=== PATIENT | female | born 2000 | race Caucasian/White ===

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

== ENCOUNTER 2020-01-18 10:20 | Emergency (ER) | payer SELFPAY ==
[~2020-01-18] VITALS: Ht 157.5 cm; Wt 71.7 kg
[2020-01-18 10:56] LABS: CLARITY,URINE SL CLOUDY (CLEAR); COLOR,URINE YELLOW (YELLOW); LEUKOCYTE ESTERASE ,URINE NEGATIVE (NEGATIVE); NITRITE,URINE NEGATIVE (NEGATIVE)
[2020-01-18 10:57] LABS: BILIRUBIN,URINE NEGATIVE (NEGATIVE); KETONES,URINE NEGATIVE (NEGATIVE); PROTEIN,URINE DIPSTICK NEGATIVE (NEGATIVE); URINE UROBILINOGEN 1 mg/dL (0.2 - 1)
[2020-01-18 10:58] LABS: PREGNANCY TEST, URINE NEGATIVE (NEGATIVE)
[2020-01-18 11:12] LABS: BACTERIA,URINE RARE /HPF; EPITHELIAL CELLS,URINE FEW /LPF; RBC,URINE 0-5 /HPF (0-5); WBC,URINE (MAN) 0-5 /HPF (0-5)
== END 2020-01-18 11:24 | disposition home or self-care (01) ==
LOC: ER 10:20
DX: R53.83 Other fatigue (principal); R53.1 Weakness
CPT/HCPCS: 81001; 81025; 99282